=== PATIENT | male | born 1990 | race Caucasian/White ===

== ENCOUNTER 2019-03-07 16:40 | Emergency (ER) | payer SELFPAY ==
[~2019-03-07] VITALS: Ht 188 cm; Wt 85.2 kg
[2019-03-07 16:47] VITALS: Ht 188 cm; Wt 85.2 kg
[2019-03-09 14:18] VITALS: BP 119/82; PULSE 109; RESP 20
== END 2019-03-09 14:20 ==
LOC: FTE 16:40 → EDBD 16:40 → E/R 03-09 14:20
DX: R45.851 Suicidal ideations (principal); R40.2142 Coma scale, eyes open, spontaneous, at arrival to emergency department; R40.2362 Coma scale, best motor response, obeys commands, at arrival to emergency department; R40.2252 Coma scale, best verbal response, oriented, at arrival to emergency department
CPT/HCPCS: 36415; 80048; 80053; 80307; 81003; 83690; 83930; 83935; 85025; 85610; 85730